=== PATIENT | male | born 1965 | race Native Hawaiian/Other Pacific Islander ===

== ENCOUNTER 2023-06-03 11:19 | Outpatient (CLI) | payer OTHER ==
[~2023-06-03 11:19] MED LIST: CYAN10009 IM; DEPO-TESTOS200 MG/M1 IM; LEXAPRO20 MG OR; ROSU10TA PO
== END 2023-06-03 20:27 | disposition home or self-care (01) ==
LOC: RAD 11:19
PROVIDERS: ATTEND Nurse Practitioner
DX: R07.89 Other chest pain (principal)

== ENCOUNTER 2023-06-03 11:19 | Outpatient (CLI) | payer OTHER | END 2023-06-03 20:26 | disposition home or self-care (01) | LOC: CT 11:19 | PROVIDERS: ATTEND Nurse Practitioner | DX: R07.89 Other chest pain (principal); I10 Essential (primary) hypertension; E78.49 Other hyperlipidemia ==

== ENCOUNTER 2023-06-22 08:07 | Outpatient (CLI) | payer OTHER | END 2023-06-22 21:51 | disposition home or self-care (01) | LOC: NM 08:07 | PROVIDERS: ATTEND Nurse Practitioner | DX: R07.89 Other chest pain (principal); R10.13 Epigastric pain; R10.11 Right upper quadrant pain | CPT/HCPCS: A9537 ==